=== PATIENT | female | born 1990 | race Two or more races ===

== ENCOUNTER 2022-02-22 10:10 | Emergency (ER) | payer SELFPAY ==
[~2022-02-22] VITALS: Ht 167.6 cm; Wt 60.0 kg
[2022-02-22 10:35] VITALS: BP 112/70
[2022-02-22] MEDS ORDERED: CEPH500C PO (10:51)
--- NOTE | 2022-02-22 10:52 | PHYS DOC ---
General Adult EDM: Chief Complaint: TOE PROBLEM HPI: HPI: Patient is a 31 year old female who presents with left great toe infection for the last week. Patient states she is had an ingrown nail that she has been using Epson salt soaks and it has been draining. She states that she had a doctor's appointment earlier this week but seem to be getting better but now it is getting more red and it is still painful. Patient states is still draining. Patient states she is also been taking ibuprofen for pain. She denies fever, focal weakness, numbness or tingling. Rates her pain aching nonradiating 5 out of 10. Review of Systems: Review of Systems: Constitutional: Denies fever or chills. [] Eyes: Denies change in visual acuity. [] HENT: Denies nasal congestion or sore throat. [] Respiratory: Denies cough or shortness of breath. [] Cardiovascular: Denies chest pain or +left toeedema. [] GI: Denies abdominal pain, nausea, vomiting, bloody stools or diarrhea. [] : Denies dysuria. [] Musculoskeletal: Denies back pain or +Left toe joint pain. [] Integument: Denies rash. +left toe infection [] Neurologic: Denies headache, focal weakness or sensory changes. [] Endocrine: Denies polyuria or polydipsia. [] Lymphatic: Denies swollen glands. [] Psychiatric: Denies depression or anxiety. [] Heart Score: C/O Chest Pain: No Physical Exam: PE: Constitutional: Well developed, well nourished, no acute distress, non-toxic appearance. [] HENT: Normocephalic, atraumatic, bilateral external ears normal, oropharynx moist, no oral exudates, nose normal. [] Eyes: PERRLA, EOMI, conjunctiva normal, no discharge. [] Neck: Normal range of motion, no tenderness, supple, no stridor. [] Cardiovascular:Heart rate regular rhythm, no murmur [] Lungs & Thorax: Bilateral breath sounds clear to auscultation [] Abdomen: Bowel sounds normal, soft, no tenderness, no masses, no pulsatile masses. [] Skin: Warm, dry, no erythema, no rash. [] Back: No tenderness, no CVA tenderness. [] Extremities: No tenderness, no cyanosis, no clubbing, ROM intact, no edema. [] Neurologic: Alert and oriented X 3, normal motor function, normal sensory function, no focal deficits noted. [] Psychologic: Affect normal, judgement normal, mood normal. [] EKG: EKG: [] Radiology/Procedures: Radiology/Procedures: [] Course & Med Decision Making: Course & Med Decision Making Pertinent Labs and Imaging studies reviewed. (See chart for details) See HPI. Alert and oriented x4. Ambulatory steady gait. Skin pink warm and dry. Pedal pulse strong present. Cap refill less than 2 seconds. Purulent drainage around the skin around the nail with redness and some tenderness. 1+ swelling. No red streaking. No cellulitis. Full range of motion of the toe joint itself. Patiently placed on antibiotics and follow-up with her primary care physician. [] Raúl Disclaimer: Raúl Disclaimer: This electronic medical record was generated, in whole or in part, using a voice recognition dictation system. Departure Departure Impression: Primary Impression: Ingrown left greater toenail Disposition: HOME / SELF CARE / HOMELESS Condition: STABLE Patient Instructions: Infected Ingrown Toenail Additional Instructions: Take medication as prescribed and with food. Follow-up with your primary care provider this coming week if not getting better. Continue using warm salt water soaks. Ibuprofen for pain. Scripts Cephalexin (KEFLEX) 500 Mg Capsule 1 CAP PO TID, #30 CAP Prov: UYRIDIA HIGGINS APRN 02/22/22 YURIDIA HIGGINS APRN February 22, 2022 10:52
== END 2022-02-22 11:13 | disposition home or self-care (01) ==
LOC: ER 10:10
DX: L60.0 Ingrowing nail (principal)
CPT/HCPCS: 99283